=== PATIENT | female | born 1970 | race Caucasian/White ===

== ENCOUNTER 2017-02-01 16:18 | Outpatient (CLI) | payer OTHER ==
[2015-10-18 14:06] VITALS: BP 119/69
== END 2017-02-01 16:20 ==
LOC: LABRHC 16:18
PROVIDERS: ATTEND Physician Assistant
DX: R30.0 Dysuria (principal)
CPT/HCPCS: 87086

== ENCOUNTER 2017-02-16 12:59 | Emergency (ER) | payer OTHER ==
--- NOTE | 2017-02-16 13:12 | ED Physician Documentation ---
Abdominal Pain - HISTORIAN Historian: patient - HPI Stated Complaint: Abdominal Pain Chief Complaint: Abdominal Pain Onset: hours Duration: gradual Timing: worse Context: denies: out of country travel, bad food, recent trauma Severity: severe Quality: pain Associated Symptoms: nausea, diarrhea. denies: fever, chills, vomiting Exacerbated by: nothing Relieved by: nothing Further Comments: yes (46 year old female patient presents with adominal pain. States it feels like she is having a diverticulitis flare. Patient reports frequent flares which are treated with antibiotics, has seen GI in the past. Is not on probiotics currently.) - ROS CONST: no problems GI/: none CVS/RESP: none EYES/ENT: none MS/SKIN/LYMPH: none NEURO/PSYCH: none - SOCIAL HX Smoking History: non-smoker - FAMILY HX Family History: denies: none - PAST HX Past History: diverticulitis Other History: other (anxiety, asthma) Surgeries/Procedures: Home Medications: Ambulatory Orders Medication Instructions Recorded Fluticasone/Salmeterol [Advair 1 puff PO PRN PRN 01/05/15 250-50 Diskus] LORazepam [Ativan] 0.5 mg PO PM 01/05/15 Levofloxacin [Levaquin] 750 mg PO DAILY #10 tablet 02/16/17 metroNIDAZOLE [Flagyl] 500 mg PO TID #30 tablet 02/16/17 Allergies/Adverse Reactions: Allergies Allergy/AdvReac Type Severity Reaction Status Date / Time ciprofloxacin [From Cipro] Allergy Intermediate Shortness Verified 02/16/17 13: 09 of Breath - VITAL SIGNS Vital Signs: Vital Signs Temp Pulse Resp BP Pulse Ox 98.4 F 80 18 141/86 99 02/16/17 12:59 02/16/17 14:32 02/16/17 12:59 02/16/17 14:32 02/16/17 14:32 - REVIEWED ASSESSMENTS Nursing Assessment Reviewed: Yes Vitals Reviewed: Yes Progress - Progress Progress: Patient states she is allergic to cipro, but can take levaquin. WBC count normal. Will not progress with scan. Will treat with antibiotic and encouraged patient to follow up with GI for re-evaluation ED Results Lab/Radiology - Lab Results Lab Results: Lab Results 02/16/17 02/16/17 13:25 13:25 WBC 7.90 K/ul K/ul (4.00-12.00) RBC 4.50 M/ul M/ul (3.90-5.20) Hgb 12.4 g/dL g/dL (12.0-16.0) Hct 37.5 % % (34.5-46.5) MCV 83.2 fl fl (80.0-100.0) MCH 27.5 pg L pg (28.0-34.0) MCHC 33.0 g/dL g/dL (30.0-36.0) RDW 12.9 % % (11.3-14.3) Plt Count 241 K/mm3 K/mm3 (130-400) Neut % (Auto) 77.1 % % (39.0-79.0) Lymph % (Auto) 18.3 % % (16.0-50.0) [place] % (Auto) 2.5 % % (0.0-11.0) Eos % (Auto) 0.9 % % (0.0-6.8) Baso % (Auto) 0.4 (0.0-1.5) Neut # 6.1 # k/uL # k/uL (1.4-7.7) Lymph # 1.4 # k/uL # k/uL (0.6-4.0) [place] # 0.2 # k/uL # k/uL (0.0-0.9) Eos # 0.1 # k/uL # k/uL (0.0-0.6) Baso # 0.0 # k/uL # k/uL (0.0-0.5) Reactive Lymphs % 0.8 % % (0.0-5.0) Reactive Lymphs # 0.1 # k/uL # k/uL (0.0-0.8) Sodium 140 mmol/L mmol/L (136-145) Potassium 3.6 mmol/L mmol/L (3.5-5.0) Chloride 105 mmol/L mmol/L (98-110) Carbon Dioxide 31 mmol/L mmol/L (20-32) BUN 10 mg/dL mg/dL (10-26) Creatinine 0.6 mg/dL mg/dL (0.4-1.5) Estimated Creat Clear 189 Est GFR ( Amer) > 60 (60 - ) Est GFR (Non-Af Amer) > 60 (60 - ) Glucose 98 mg/dL mg/dL (70-99) Calcium 10.0 mg/dL mg/dL (8.5-10.5) Total Bilirubin 0.3 mg/dL mg/dL (0.2-1.2) AST 24 U/L U/L (0-41) ALT 24 U/L U/L (0-45) Alkaline Phosphatase 71 U/L U/L (46-116) Total Protein 7.5 g/dL g/dL (6.0-8.5) Albumin 4.9 g/dL g/dL (3.0-5.5) - Orders Orders: ED Orders Category Date Time Status Place Saline Lock/IV NOW Care 02/16/17 13:11 Completed CBC/PLATELET/DIFF Stat Lab 02/16/17 13:25 Completed CMP Stat Lab 02/16/17 13:25 Completed UA W/MICRO IF INDICATED Stat Lab 02/16/17 13:11 Ordered Abdominal Pain Physical Exam - Physical Exam General Appearance: mild distress EENT: eye inspection normal, [place] RESPIRATORY: no resp distress, chest non-tender, breath sounds normal CVS: reg rate & rhythm, heart sounds normal, equal pulses, no murmur, no gallop , PMI nml, no JVD, no friction rub, 24 ABDOMEN: soft, no organomegaly, normal bowel sounds, no abdominal bruit, no distension, tenderness (lower middle and LLQ with palpation) BACK: normal inspection, no CVA tenderness SKIN: normal color, warm/dry, NR, INT, PAL, DR EXTREMITIES: non-tender, normal range of motion, no evidence of injury, no edema , J, [employer]: oriented X3, CN's nml as tested, motor nml, sensation nml Vital Signs: Vital Signs Temp Pulse Resp BP Pulse Ox 98.4 F 80 18 141/86 99 02/16/17 12:59 02/16/17 14:32 02/16/17 12:59 02/16/17 14:32 02/16/17 14:32 Discharge Clincal Impression: Diverticulitis Qualifiers: Diverticulitis site: unspecified part of intestinal tract Diverticulitis bleeding: without bleeding Diverticulitis complication: without perforation or abscess Qualified Code(s): K57.92 - Diverticulitis of intestine, part unspecified, without perforation or abscess without bleeding Prescriptions: Levofloxacin [Levaquin] 750 mg PO DAILY #10 tablet metroNIDAZOLE [Flagyl] 500 mg PO TID #30 tablet Referrals: Sergo Whyte MD [Primary Care Provider] - 2 Days Additional Instructions: High fiber diet Restart your probiotics to prevent flair ups. occupational health physiotherapist your prescriptions and start them today Home Medications: Ambulatory Orders Fluticasone/Salmeterol [Advair 250-50 Diskus] 1 puff PO PRN PRN 01/05/15 LORazepam [Ativan] 0.5 mg PO PM 01/05/15 Levofloxacin [Levaquin] 750 mg PO DAILY #10 tablet 02/16/17 metroNIDAZOLE [Flagyl] 500 mg PO TID #30 tablet 02/16/17 Condition: Stable Disposition: 01 HOME, SELF-CARE Decision to Admit: NO Decision Time: 14:25
[2017-02-16 13:28] LABS: BASOPHILS % 0.4 (0.0-1.5); EOSINOPHILS % 0.9 % (0.0-6.8); MEAN CORPUSCULAR HEMOGLOBIN 27.5 pg (28.0-34.0); MEAN CORPUSCULAR VOLUME 83.2 fl (80.0-100.0); MONOCYTES % 2.5 % (0.0-11.0); NEUTROPHILS # 6.1 # k/uL (1.4-7.7)
[2017-02-16 13:48] LABS: eGFR (African) > 60; eGFR (Non-African) > 60
[2017-02-16 14:36] VITALS: BP 141/86
== END 2017-02-16 14:31 | disposition home or self-care (01) ==
LOC: ED 12:59
DX: K57.92 Diverticulitis of intestine, part unspecified, without perforation or abscess without bleeding (principal)
CPT/HCPCS: 80053; 85025; 99283; S1016

== ENCOUNTER 2017-03-01 12:24 | Outpatient (CLI) | payer OTHER ==
--- NOTE | 2017-03-01 14:23 | Diagnostic Imaging Report ---
[facility] [address] [facility] [address] Report Submission Date: March 01, 2017 1:08:00 PM CDT Patient Study Name: ASHLY WHITE Date: March 01, 2017 12:45:17 PM CDT Modality Type: CT\SR Gender: F Description: CT ABD & PELVIS W/ CON : 72 Institution: [facility] Physician JAYDEN JONES CT of the abdomen and pelvis with contrast CLINICAL HISTORY: Lower abdominal pain. History of diverticulitis. Contrast administered: 94 mL of Omnipaque. TECHNIQUE: CT of the abdomen and pelvis is performed with intravenous infusion of contrast. Sagittal and coronal reconstructions are performed by the technologist. FINDINGS: Visualized lung bases are clear. The liver and spleen demonstrate normal attenuation without focal defect. Gallbladder is contracted, but otherwise unremarkable. There is no pancreatic or adrenal abnormality. Kidneys demonstrate symmetric enhancement. Vascular calcification is present in the abdominal aorta without evidence of aneurysm. There is no retroperitoneal mass or significant adenopathy. The appendix is visualized and is within normal limits. There is a small amount of free fluid in the pelvis. Uterus and adnexal structures are within normal limits. There is minimal stranding adjacent to the sigmoid colon near the junction of the sigmoid and descending colon consistent with early or mild diverticulitis. There is no evident abscess. Spondylitic changes are seen in the thoracolumbar spine with vacuum phenomenon at L5-S1. IMPRESSION: Minimal pericolonic stranding in the proximal sigmoid colon consistent with diverticulitis. Small amount of free fluid in the pelvis. Negative appendix. Vascular calcification. Electronically signed on March 01, 2017 1:08:00 PM CDT by: Roger NELSON
== END 2017-03-01 12:25 ==
LOC: RAD 12:24
PROVIDERS: ATTEND Physician Assistant
DX: R10.30 Lower abdominal pain, unspecified (principal)
CPT/HCPCS: 74177; Q9966

== ENCOUNTER 2017-05-05 13:49 | Outpatient (CLI) | payer OTHER ==
[2017-05-05 14:05] LABS: APPEARANCE,URINE Clear (CLEAR); BASOPHILS % 0.2 (0.0-1.5); COLOR,URINE Yellow (YELLOW); EOSINOPHILS % 0.7 % (0.0-6.8); MEAN CORPUSCULAR HEMOGLOBIN 27.9 pg (28.0-34.0); MEAN CORPUSCULAR VOLUME 84.3 fl (80.0-100.0); NEUTROPHILS # 6.6 # k/uL (1.4-7.7); OCCULT BLOOD,URINE Negative (NEGATIVE); UROBILINOGEN URINE 0.2 Eu (0.2-1.0)
== END 2017-05-05 13:50 ==
LOC: LAB 13:49
PROVIDERS: ATTEND Physician Assistant
DX: N91.2 Amenorrhea, unspecified (principal); R10.30 Lower abdominal pain, unspecified
CPT/HCPCS: 36415; 81002; 82670; 83001; 83002; 85025

== ENCOUNTER 2017-08-11 14:08 | Outpatient (CLI) | payer OTHER ==
[2017-08-11 14:19] LABS: BASOPHILS % 0.6 (0.0-1.5); EOSINOPHILS % 1.5 % (0.0-6.8); MEAN CORPUSCULAR HEMOGLOBIN 26.9 pg (28.0-34.0); MONOCYTES % 2.5 % (0.0-11.0)
== END 2017-08-11 14:10 ==
LOC: LAB 14:08
PROVIDERS: ATTEND Physician Assistant
DX: R53.83 Other fatigue (principal); N92.6 Irregular menstruation, unspecified; R10.30 Lower abdominal pain, unspecified
CPT/HCPCS: 36415; 84439; 84443; 84481; 85025

== ENCOUNTER 2017-08-17 09:38 | Outpatient (CLI) | payer OTHER ==
--- NOTE | 2017-08-17 13:05 | Diagnostic Imaging Report ---
JAYDEN JONES [facility] [address] [facility].[address] [address] Report Submission Date: Aug 17, 2017 10:39:20 AM CDT Patient Study Name: ASHLY WHITE Date: Aug 17, 2017 9:57:41 AM CDT Modality Type: US Gender: F Description: TRANSVAGINAL PELVIS : 72 Institution: [facility] Physician: JAYDEN JONES Examination: Ultrasound pelvis History: Lower abdominal scattered Comparison exams: None available Findings: Sonographic evaluation of the pelvis demonstrates uterus measuring 8.3 x 4.6 x 5.7 cm. Myometrium demonstrates an area of heterogeneity within the lower anterior uterine margin. Region measures approximately 1.5 cm diameter. Endometrial complex measures 12.8 mm. Right ovary measures 2.8 but 2.4 x 2.6 cm. Left ovary measures 3.9 x 3.1 x 3.4 cm. Normal flow on Doppler analysis. Cysts bilaterally. Largest cyst is on the left measuring 3.2 cm maximally. Impression: Low density region lower anterior uterine myometrium: Could represent fibroid versus scar from reported C sections. Thickened endometrial complex at 12.8 mm. Correlate with menstrual cycle. Ovarian cysts. No evidence for ovarian torsion. Electronically signed on Aug 17, 2017 10:39:20 AM CDT by: Nabeel NELSON
== END 2017-08-17 09:40 ==
LOC: RAD 09:38
PROVIDERS: ATTEND Physician Assistant
DX: R10.30 Lower abdominal pain, unspecified (principal)
CPT/HCPCS: 76830

== ENCOUNTER 2017-10-18 16:59 | Outpatient (CLI) | payer OTHER | END 2017-10-18 17:00 | LOC: LABRHC 16:59 | PROVIDERS: ATTEND Physician Assistant | DX: R30.0 Dysuria (principal) | CPT/HCPCS: 87086 ==

== ENCOUNTER 2018-02-03 10:27 | Outpatient (CLI) | payer OTHER ==
[2018-02-03 10:40] LABS: BASOPHILS % 0.7 (0.0-1.5); EOSINOPHILS % 1.7 % (0.0-6.8); MEAN CORPUSCULAR HEMOGLOBIN 27.2 pg (28.0-34.0); MEAN CORPUSCULAR VOLUME 84.7 fl (80.0-100.0); MONOCYTES % 3.8 % (0.0-11.0); NEUTROPHILS # 5.4 # k/uL (1.4-7.7)
[2018-02-03 11:10] LABS: eGFR (African) > 60; eGFR (Non-African) > 60
--- NOTE | 2018-02-03 18:00 | Diagnostic Imaging Report ---
JAYDEN JONES [facility] [address] [facility] [address] [place], [place]. [address] Report Submission Date: Feb 03, 2018 11:56:25 AM CDT Patient Study Name: ASHLY WHITE Date: Feb 03, 2018 11:22:08 AM CDT Modality Type: CT\SR Gender: F Description: CT ABD PELVIS W/ CON : 72 Institution: [facility] Physician: JAYDEN JONES Examination: CT Abdomen/pelvis History: CT A/P WITH CONTRAST, RLQ ABD PAIN SINCE Tuesday01/31/18, WORSENING. FEVER AND REBOUND (Hx) Comparison exams: None available Technique: CT Abdomen/pelvis with IV protocol. Findings: Liver, spleen, adrenals, pancreas, kidneys and gallbladder are without gross irregularity. No abnormal enhancement. No gallstone. Splenic granuloma. No suspicious renal calcifications. Ureters are nondilated in their course through the abdomen and pelvis. Abdominal aorta without aneurysm. Mild peripheral atherosclerotic disease. Cardiac silhouette is not enlarged. No pericardial effusion. Bowel unopacified limiting evaluation. No abnormal small bowel dilation. Stool within the large bowel limiting sensitivity. No mesenteric inflammatory changes or free fluid. What appears to be the appendix is without inflammatory changes. Mild prominence of the large bowel mucosa. Uterus and adnexal regions without gross abnormality. Osseous structures demonstrate degenerative changes. Lung bases demonstrate atelectasis. No effusion. Impression: Mild prominence of the large bowel mucosa - nondistention versus mild inflammation. Correlate with patient symptoms. No acute upper abdominal organ inflammatory process. No gallstone. No suspicious renal calcifications or abnormal ureteric dilation. Lung base atelectasis. No consolidation or effusion. Electronically signed on Feb 03, 2018 11:56:25 AM CDT by: Nabeel NELSON
== END 2018-02-03 10:35 ==
LOC: RAD 10:27
PROVIDERS: ATTEND Physician Assistant
DX: R10.31 Right lower quadrant pain (principal); R50.9 Fever, unspecified
CPT/HCPCS: 36415; 74177; 80053; 85025; Q9967

== ENCOUNTER 2018-03-06 07:53 | Day surgery (SDC) | payer OTHER ==
--- NOTE | 2018-03-06 13:37 | GI Report ---
REFERRING PHYSICIAN: Dr. Sergo Whyte LANDSCAPE NURSERYMAN: Cem Fan MD PROCEDURE MEDICATION: Propofol as per anesthesia. INDICATIONS: Patient is a 47-year-old who has had some changes in her bowel habits. She goes about 5 or 6 times and has small caliber stools. There has been blood mixed in with the stool. She reportedly had an attack of diverticulitis evaluated about 3 years ago at the [facility]. She denies a family history of colorectal cancer. Mother is a diabetic. Patient is 5 feet 6 inches and her BMI is 89. She was a cigarette smoker for 20 years of a pack per day and has not smoked in 4 years. PROCEDURE PERFORMED: Colonoscopy. PROCEDURE: An [employer] video colonoscope was advanced in the rectum. She does have mild diverticular disease of the sigmoid and descending colon. There is a little edema and a little friability. The colonoscope was slowly advanced all the way to the cecum. The appendiceal orifice and terminal ileum were inspected and were normal. On slow withdrawal, the cecum, ascending colon, and transverse colon with no obvious intraluminal lesions noted. The descending colon and sigmoid with mild to moderate diverticular disease with a couple of areas in the sigmoid of a little friability and edema. No obvious diverticulitis. Retroflexion of the rectum shows an internal hemorrhoid. Patient tolerated the procedure well. FINDINGS: 1. Moderate diverticular disease of the sigmoid and descending colon. 2. Hemorrhoids. RECOMMENDATIONS: 1. She needs to be on a fiber supplement daily such as Benefiber, Citrucel, Metamucil, or FiberCon. 2. MiraLAX one-half to one scoop in fluid daily. 3. Increase fruits, fiber, and vegetables in the diet. 4. See Dr. Whyte and KATHI Walker in follow up. 5. Consider re-looking at her colon in 5 to 10 years if clinically indicated and in at least 10 years for a screening. cc: Dr. Sergo NELSON
== END 2018-03-06 07:55 ==
LOC: OPSURG 07:53
PROVIDERS: ATTEND Internal Medicine Gastroenterology
DX: K57.10 Diverticulosis of small intestine without perforation or abscess without bleeding (principal); R19.4 Change in bowel habit; E66.9 Obesity, unspecified; Z68.45 Body mass index [BMI] 70 or greater, adult; F17.210 Nicotine dependence, cigarettes, uncomplicated
CPT/HCPCS: 45378; 81025; J2001; J2704; J7120; S1016

== ENCOUNTER 2018-10-04 16:16 | Outpatient (CLI) | payer OTHER ==
[2018-10-06] MEDS ORDERED: LIDOCAINE Urojet 5 ML JEL MM ONE (19:53)
== END 2018-10-04 16:18 ==
LOC: LABRHC 16:16
PROVIDERS: ATTEND Physician Assistant
DX: R30.0 Dysuria (principal); B95.1 Streptococcus, group B, as the cause of diseases classified elsewhere
CPT/HCPCS: 87086

== ENCOUNTER 2018-11-09 14:42 | Outpatient (CLI) | payer OTHER ==
--- NOTE | 2018-11-09 19:10 | Diagnostic Imaging Report ---
LENNY CESAR [facility] [place] [facility] [address] [facility].[address] [address] Report Submission Date: Nov 09, 2018 3:51:54 PM SOFTWARE INSTALLER Patient Study Name: ASHLY WHITE Date: Nov 09, 2018 3:05:52 PM SOFTWARE INSTALLER Modality Type: DX Gender: F Description: LOWER EXTREMITY : 72 Institution: [facility] [place] [facility] Physician: LENNY CESAR Right tibia and fibula History: Pain after a fall AP and lateral projections of the right tibia and fibula demonstrate no evidence for acute fracture or dislocation. Alignment and mineralization is normal. Impression: No osseous abnormality. Electronically signed on Nov 09, 2018 3:51:54 PM SOFTWARE INSTALLER by: Lucina NELSON
== END 2018-11-09 15:00 ==
LOC: RAD 14:42
PROVIDERS: ATTEND Family Medicine
DX: M79.662 Pain in left lower leg (principal)
CPT/HCPCS: 73590